=== PATIENT | female | born 1960 | race Caucasian/White ===

== ENCOUNTER 2017-01-13 16:42 | Observation (INO) | payer OTHER ==
[2017-01-13] MEDS ORDERED: Aspirin Low Dose CHEW TAB* 81 MG PO ONE (17:13)
[2017-01-13 17:55] LABS: ALT 24 U/L (7-52); Albumin 4.5 g/dL (3.2-5.2); Alkaline Phosphatase 60 U/L (34-104); BUN/Creatinine Ratio 29.5 (8-20); Blood Urea Nitrogen 18 mg/dL (6-24); CO2 Carbon Dioxide 23 mmol/L (22-32); Calcium 9.1 mg/dL (8.6-10.3); Chloride 105 mmol/L (101-111); Creatine Kinase 177 U/L (10-223); EGFR Non-African American 101.1 (>60); Globulin 2.8 g/dL (2-4); Glucose 99 mg/dL (70-100); Sodium 135 mmol/L (133-145); Total Protein 7.3 g/dL (6.4-8.9)
[2017-01-13 17:57] LABS: Troponin I 0.01 ng/mL (<0.04)
[2017-01-13 18:06] LABS: TSH (Thyroid Stimulating Horm) 0.91 mcIU/mL (0.34-5.60)
--- NOTE | 2017-01-13 18:26 | RAD ---
INDICATION: Chest pain COMPARISON: None. TECHNIQUE: Single AP portable view of the chest was obtained. FINDINGS: Image quality is compromised due to the relative inferiority of a portable chest x-ray. The heart and mediastinum exhibit normal size and contour. The lungs are grossly clear. There is no evidence of a large pleural effusion. Visualized bones are normal for the patient's age. IMPRESSION: No radiographic evidence for acute cardiopulmonary abnormality on this portable chest x-ray.
[2017-01-13 18:33] LABS: Hematocrit 40 % (35-47); Hemoglobin 13.6 g/dl (12.0-16.0); Mean Corpuscular HGB Conc 34 g/dl (31-36); Mean Corpuscular Hemoglobin 32 pg (27-31); Mean Corpuscular Volume 92 fL (80-97); Red Blood Count 4.32 10^6/ul (4.0-5.4); Red Cell Distribution Width 13 % (10.5-15); White Blood Count 7.8 10^3/ul (3.5-10.8)
[2017-01-13 18:38] LABS: Add Diff/Slide Review? Slide Review Added; Comments Flag Yes
[2017-01-13 19:02] LABS: Mean Platelet Volume 9 um3 (7.4-10.4)
[2017-01-13 19:07] LABS: Magnesium 2.4 mg/dL (1.9-2.7)
[2017-01-13 20:26] LABS: Urine Bacteria Absent (Absent); Urine Bilirubin Negative (Negative); Urine Glucose Negative (Negative); Urine Nitrite Negative (Negative)
[2017-01-13] MEDS ORDERED: Nitroglycerin TAB 0.4 MG* 0.4 MG TAB SL ONE (22:23)
[2017-01-13] MEDS ORDERED: Acetaminophen TAB* 325 MG PO PRN (22:39)
[2017-01-13] MEDS ORDERED: Melatonin (NF) 3 MG TAB PO PRN (22:39)
[2017-01-13] MEDS ORDERED: Ondansetron INJ* 2 MG/ML VIAL IV PRN (22:39)
[2017-01-13] MEDS ORDERED: Morphine INJ* 2 MG/ML 1 ML SYRINGE IV PRN (22:39)
[2017-01-13] MEDS ORDERED: NS 0.9% 1000 ML* 1,000 ML IV SCH (22:45)
--- NOTE | 2017-01-13 22:52 | HP ---
H&P (Free Text) History and Physical: PCP: Linda Oconnell MD Date/Time of Evaluation: 01/13/2017 1825 CC: chest pain HPI: Mrs Stuart is a 57YO obese female HX HTN, brother w/ PA/3vCABG in his 50s presents with onset of non-radiating, non-exertional sharp to pressure-like substernal chest pain around 1300 as she got off a mattress while mattress shopping. There has been no SOB, N/V, sweating, palpitations, or light- headedness. She went out to dinner with her while the pain gradually increased. While driving home her pain increased to 10/10, still without associated symptoms prompting her to have her bring her to [facility] ED. Aspirin and nitro have had no effect on the pain, but it has spontaneously decreased to a level of 2/10. Troponins are negative x2. ECG is sinus bradycardia rate 58, mild ST depression V4-5. pCXR is benign. PMedHx Allergies No Known Allergies Allergy (Verified 04/29/13 09:54) HTN OAB GERD Ambulatory Orders Ibuprofen TAB* [Advil TAB*] 400 mg PO Q6HR PRN 04/20/13 Lisinopril TAB* [Prinivil TAB*] 10 mg PO DAILY 01/13/17 Oxybutynin XL TAB* [Ditropan XL TAB*] 10 mg PO DAILY 01/13/17 Pantoprazole TAB (NF) [Protonix TAB (NF)] 40 mg PO DAILY 01/13/17 PSurgHx R ulnar shortening surgery appendectomy SocHx: former smoker w/ ~10PYHX, former drinker sober x15 years, no recreational drugs; lives with her ; works in retail; full code status FamHx: Brother 1: PA/3vCABG in his 40s, passed of PA at 53. Brother 2: DM2, super morbid obesity, CHF, COPD, passed of mixed PA/COPD at age 53 also. ROS: as above, otherwise reviewed and all were negative Constitutional: NAD, normally developed, obese white female vitals: Vital Signs Temp 37.4 C 01/13/17 16:55 Pulse 58 01/13/17 22:34 Resp 16 01/13/17 22:34 BP 136/82 01/13/17 22:34 Pulse Ox 96 01/13/17 22:34 Intake & Output 01/12/17 01/13/17 01/13/17 23:59 11:59 23:59 Weight 97.522 kg HEENM: atraumatic; sclera/conjunctiva: non-tender/clear; hearing: clinically intact; oropharynx: clear, mucosa moist Neck: soft tissue: non-tender; thyroid: normal Pulmonary: clear to auscultation bilaterally, good aeration, no accessory muscle use CV: RR/RR, normal S1S2, no carotid bruit, no jugular venous distention, 2+ B DP/ PT, no edema Abdominal: soft, non-distended, non-tender, no rebound/guarding/rigidity, normoactive bowel sounds, no hepatosplenomegaly or masses, no costovertebral angle tenderness Musculoskeletal: general: grossly intact; gait: stable Integumental: normal appearance and texture of exposed skin Psychiatric orientation: AA&O to PPS affect: calm mood: cooperative eye contact: good content: reliable responses: timely insight: good Testing: Lab Results 01/13/17 01/13/17 01/13/17 Range/Units 17:05 18:26 18:26 WBC (3.5-10.8) 10^3/ul RBC (4.0-5.4) 10^6/ul Hgb (12.0-16.0) g/dl Hct (35-47) % MCV (80-97) fL MCH (27-31) pg MCHC (31-36) g/dl RDW (10.5-15) % Plt Count (150-450) 10^3/ul MPV (7.4-10.4) um3 Neut % (Auto) (38-83) % Lymph % (Auto) (25-47) % [place] % (Auto) (1-9) % Eos % (Auto) (0-6) % Baso % (Auto) (0-2) % Absolute Neuts (auto) (1.5-7.7) 10^3/ul Absolute Lymphs (auto) (1.0-4.8) 10^3/ul Absolute Monos (auto) (0-0.8) 10^3/ul Absolute Eos (auto) (0-0.6) 10^3/ul Absolute Basos (auto) (0-0.2) 10^3/ul Absolute Nucleated RBC 10^3/ul Nucleated RBC % Sodium 135 (133-145) mmol/L Potassium TNP 3.9 Chloride 105 (101-111) mmol/L Carbon Dioxide 23 (22-32) mmol/L Anion Gap TNP BUN 18 (6-24) mg/dL Creatinine 0.61 (0.51-0.95) mg/dL Est GFR ( Amer) 130.0 (>60) Est GFR (Non-Af Amer) 101.1 (>60) BUN/Creatinine Ratio 29.5 H (8-20) Glucose 99 (70-100) mg/dL Lactic Acid (0.5-2.0) mmol/L Calcium 9.1 (8.6-10.3) mg/dL Magnesium TNP 2.4 Total Bilirubin 0.50 (0.2-1.0) mg/dL AST TNP 23 ALT 24 (7-52) U/L Alkaline Phosphatase 60 (34-104) U/L Total Creatine Kinase 177 (10-223) U/L CK-MB (CK-2) 5.6 (0.6-6.3) ng/mL Myoglobin 31.8 (14.3-65.8) ng/mL Troponin I 0.01 (<0.04) ng/mL B-Natriuretic Peptide 24 ( - 100) pg/mL Total Protein 7.3 (6.4-8.9) g/dL Albumin 4.5 (3.2-5.2) g/dL Globulin 2.8 (2-4) g/dL Albumin/Globulin Ratio 1.6 (1-3) TSH 0.91 (0.34-5.60) mcIU/mL Urine Color Urine Appearance Urine pH (5-9) Ur Specific [place] (1.010-1.030) Urine Protein (Negative) Urine Ketones (Negative) Urine Blood (Negative) Urine Nitrate (Negative) Urine Bilirubin (Negative) Urine Urobilinogen (Negative) Ur Leukocyte Esterase (Negative) Urine WBC (Auto) (Absent) Urine RBC (Auto) (Absent) Ur Squamous Epith Cells (Absent) Urine Bacteria (Absent) Urine Glucose (Negative) 01/13/17 01/13/17 01/13/17 Range/Units 18:26 20:05 20:05 WBC 7.8 (3.5-10.8) 10^3/ul RBC 4.32 (4.0-5.4) 10^6/ul Hgb 13.6 (12.0-16.0) g/dl Hct 40 (35-47) % MCV 92 (80-97) fL MCH 32 H (27-31) pg MCHC 34 (31-36) g/dl RDW 13 (10.5-15) % Plt Count 193 (150-450) 10^3/ul MPV 9 (7.4-10.4) um3 Neut % (Auto) 51.3 (38-83) % Lymph % (Auto) 38.0 (25-47) % [place] % (Auto) 6.7 (1-9) % Eos % (Auto) 2.7 (0-6) % Baso % (Auto) 1.3 (0-2) % Absolute Neuts (auto) 4.0 (1.5-7.7) 10^3/ul Absolute Lymphs (auto) 3.0 (1.0-4.8) 10^3/ul Absolute Monos (auto) 0.5 (0-0.8) 10^3/ul Absolute Eos (auto) 0.2 (0-0.6) 10^3/ul Absolute Basos (auto) 0.1 (0-0.2) 10^3/ul Absolute Nucleated RBC 0.01 10^3/ul Nucleated RBC % 0.1 Sodium (133-145) mmol/L Potassium Chloride (101-111) mmol/L Carbon Dioxide (22-32) mmol/L Anion Gap BUN (6-24) mg/dL Creatinine (0.51-0.95) mg/dL Est GFR ( Amer) (>60) Est GFR (Non-Af Amer) (>60) BUN/Creatinine Ratio (8-20) Glucose (70-100) mg/dL Lactic Acid 0.7 (0.5-2.0) mmol/L Calcium (8.6-10.3) mg/dL Magnesium Total Bilirubin (0.2-1.0) mg/dL AST ALT (7-52) U/L Alkaline Phosphatase (34-104) U/L Total Creatine Kinase (10-223) U/L CK-MB (CK-2) (0.6-6.3) ng/mL Myoglobin (14.3-65.8) ng/mL Troponin I (<0.04) ng/mL B-Natriuretic Peptide ( - 100) pg/mL Total Protein (6.4-8.9) g/dL Albumin (3.2-5.2) g/dL Globulin (2-4) g/dL Albumin/Globulin Ratio (1-3) TSH (0.34-5.60) mcIU/mL Urine Color Yellow Urine Appearance Clear Urine pH 6.0 (5-9) Ur Specific [place] 1.017 (1.010-1.030) Urine Protein Negative (Negative) Urine Ketones Negative (Negative) Urine Blood Negative (Negative) Urine Nitrate Negative (Negative) Urine Bilirubin Negative (Negative) Urine Urobilinogen Negative (Negative) Ur Leukocyte Esterase Trace H (Negative) Urine WBC (Auto) Trace(0-5/hpf) (Absent) Urine RBC (Auto) Absent (Absent) Ur Squamous Epith Cells Present H (Absent) Urine Bacteria Absent (Absent) Urine Glucose Negative (Negative) 01/13/17 Range/Units 20:05 WBC (3.5-10.8) 10^3/ul RBC (4.0-5.4) 10^6/ul Hgb (12.0-16.0) g/dl Hct (35-47) % MCV (80-97) fL MCH (27-31) pg MCHC (31-36) g/dl RDW (10.5-15) % Plt Count (150-450) 10^3/ul MPV (7.4-10.4) um3 Neut % (Auto) (38-83) % Lymph % (Auto) (25-47) % [place] % (Auto) (1-9) % Eos % (Auto) (0-6) % Baso % (Auto) (0-2) % Absolute Neuts (auto) (1.5-7.7) 10^3/ul Absolute Lymphs (auto) (1.0-4.8) 10^3/ul Absolute Monos (auto) (0-0.8) 10^3/ul Absolute Eos (auto) (0-0.6) 10^3/ul Absolute Basos (auto) (0-0.2) 10^3/ul Absolute Nucleated RBC 10^3/ul Nucleated RBC % Sodium (133-145) mmol/L Potassium Chloride (101-111) mmol/L Carbon Dioxide (22-32) mmol/L Anion Gap BUN (6-24) mg/dL Creatinine (0.51-0.95) mg/dL Est GFR ( Amer) (>60) Est GFR (Non-Af Amer) (>60) BUN/Creatinine Ratio (8-20) Glucose (70-100) mg/dL Lactic Acid (0.5-2.0) mmol/L Calcium (8.6-10.3) mg/dL Magnesium Total Bilirubin (0.2-1.0) mg/dL AST ALT (7-52) U/L Alkaline Phosphatase (34-104) U/L Total Creatine Kinase (10-223) U/L CK-MB (CK-2) (0.6-6.3) ng/mL Myoglobin (14.3-65.8) ng/mL Troponin I 0.00 (<0.04) ng/mL B-Natriuretic Peptide ( - 100) pg/mL Total Protein (6.4-8.9) g/dL Albumin (3.2-5.2) g/dL Globulin (2-4) g/dL Albumin/Globulin Ratio (1-3) TSH (0.34-5.60) mcIU/mL Urine Color Urine Appearance Urine pH (5-9) Ur Specific [place] (1.010-1.030) Urine Protein (Negative) Urine Ketones (Negative) Urine Blood (Negative) Urine Nitrate (Negative) Urine Bilirubin (Negative) Urine Urobilinogen (Negative) Ur Leukocyte Esterase (Negative) Urine WBC (Auto) (Absent) Urine RBC (Auto) (Absent) Ur Squamous Epith Cells (Absent) Urine Bacteria (Absent) Urine Glucose (Negative) ECG, personally reviewed: sinus bradycardia rate 58, mild ST depression V4-5 CXR, personally reviewed: IMPRESSION: No radiographic evidence for acute cardiopulmonary abnormality on this portable chest x-ray. Impression: 57F HX obesity, HTN, FamHX+ early onset CAD presenting w/ chest pain for r/o ACS DIAGNOSIS & PLAN Primary chest pain r/o ACS : aspirin : no beta bishnu 2nd bradycardia : supplemental oxygen : trend troponin : telemetry : stress test in AM : supportive care Secondary HTN : continue lisinopril OAB : continue oxybutynin GERD : omeprazole Admission Rational: CDU observation for r/o ACS DVTp: RHODA Code Status: full HCP:
[2017-01-14] MEDS ORDERED: CMCS - Melatonin (NF) 3 MG TAB PO PRN (00:18)
[2017-01-14] MEDS ORDERED: Omeprazole CAP* 20 MG PO SCH (06:00)
--- NOTE | 2017-01-14 07:46 | ED ---
Ricki Boone Adam, scribed for Maximino Linda MD on 01/13/17 at 1717 . HPI Chest Pain - HPI Summary HPI Summary: Pt is a 57 year old female presenting with chest pain that set on suddenly at approximately 13:00. The pt was at a furniture store lying down on a mattress and when she sat up she immediately felt pain in a specific area near her sternum. She assumed that she had pulled a muscle so she went on with her day. However, over time she states that the pain "tightened up" and became an 8 or 9 out of 10 in severity. Deep breaths aggravate the pain. Pt has never had this pain before. As she sits in the ED now, the pain is resolved. She denies nausea , vomiting, diaphoresis, pre-syncope, SOB, diarrhea, and constipation. PMHx of HTN. No tobacco hx; occasional EtOH use. FMHx of cardiac disease in her two brothers. - History of Current Complaint Chief Complaint: EDChestPainROMI Time Seen by Provider: 01/13/17 17:13 Hx Obtained From: Patient Onset/Duration: Started Hours Ago, Atraumatic, Resolved Timing: Constant Initial Severity: Moderate Current Severity: None Pain Intensity: 2 Pain Scale Used: 0-10 Numeric Chest Pain Location: Discrete at: - near the pt's sternum Character: Tightness, Other: - [place] like "pulled muscle" Aggravating Factor(s): Deep Breaths Alleviating Factor(s): Spontaneous Resolution Associated Signs and Symptoms: Negative: Shortness of Breath, Syncope, Diaphoresis, Nausea, Vomiting - Allergy/Home Medications Allergies/Adverse Reactions: Allergies Allergy/AdvReac Type Severity Reaction Status Date / Time No Known Allergies Allergy Verified 04/29/13 09:54 Home Medications: Home Medications Lisinopril TAB* [Prinivil TAB*] 10 mg PO DAILY 01/13/17 [History Confirmed 01/13] Oxybutynin XL TAB* [Ditropan XL TAB*] 10 mg PO DAILY 01/13/17 [History Confirmed 01/13/17] Pantoprazole TAB (NF) [Protonix TAB (NF)] 40 mg PO DAILY 01/13/17 [History Confirmed 01/13/17] PMH/Surg Hx/FS Hx/Imm Hx Cardiovascular History: Reports: Hx Hypertension Denies: Hx Pacemaker/ICD Musculoskeletal History: Reports: Hx Arthritis - HANDS Sensory History: Reports: Hx Contacts or Glasses - GLASSES Denies: Hx Hearing Aid Opthamlomology History: Reports: Hx Contacts or Glasses - GLASSES - Surgical History Surgery Procedure, Year, and Place: HERNIA REPAIR[facility]. APPENDECTOMY Hx Anesthesia Reactions: No Infectious Disease History: No Infectious Disease History: Denies: Traveled Outside the [place] in Last 30 Days - Family History Known Family History: Positive: Cardiac Disease - (brothers), Respiratory Disease - COPD (brother), Other - Cancer - Social History Occupation: Employed Full-time Lives: With Family - Alcohol Use: Occasionally Hx Substance Use: No Substance Use Type: Reports: None Hx Tobacco Use: No Smoking Status (MU): Never Smoked Tobacco Review of Systems Negative: Skin Diaphoresis Positive: Chest Pain Negative: Shortness Of Breath Negative: Vomiting, Diarrhea, Nausea Negative: Syncope All Other Systems Reviewed And Are Negative: Yes Physical Exam - Summary Physical Exam Summary: VITAL SIGNS: Reviewed. GENERAL: Patient is a well developed and nourished female who is lying comfortable in the stretcher. Patient is not in any acute respiratory distress. HEAD AND FACE: No signs of trauma. No ecchymosis, hematomas or skull depressions. No sinus tenderness. EYES: PERRLA, EOMI x 2, No injected conjunctiva, no nystagmus. EARS: Hearing grossly intact. Ear canals and tympanic membranes are within normal limits. MOUTH: Oropharynx within normal limits. NECK: Supple, trachea is midline, no adenopathy, no JVD, no carotid bruit, no c- spine tenderness, neck with full ROM. CHEST: Symmetric, Positive tenderness at palpation in the retrosternal area. LUNGS: Clear to auscultation bilaterally. No wheezing or crackles. CVS: Regular rate and rhythm, S1 and S2 present, no murmurs or gallops appreciated. ABDOMEN: Soft, non-tender. No signs of distention. No rebound no guarding, and no masses palpated. Bowel sounds are normal. EXTREMITIES: FROM in all major joints, no edema, no cyanosis or clubbing. NEURO: Alert and oriented x 3. No acute neurological deficits. Speech is normal and follows commands. SKIN: Dry and warm Triage Information Reviewed: Yes Vital Signs On Initial Exam: Initial Vitals Temp Pulse Resp BP Pulse Ox 99.4 F 67 16 159/73 97 01/13/17 16:55 01/13/17 16:55 01/13/17 16:55 01/13/17 16:55 01/13/17 16:55 Vital Signs Reviewed: Yes - Vish Coma Scale Coma Scale Total: 15 Diagnostics - Vital Signs Vital Signs Temp Pulse Resp BP Pulse Ox 01/13/17 16:55 99.4 F 67 16 159/73 97 - Laboratory Result Diagrams: 01/13/17 18:26 01/13/17 18:26 Lab Statement: Any lab studies that have been ordered have been reviewed, and results considered in the medical decision making process. - Radiology CXR Xray Interpretation: No Acute Changes Radiology Interpretation Completed By: Radiologist - EKG 16:50 Cardiac Rate: NL - 71 BPM EKG Rhythm: Sinus Rhythm EKG Interpretation: No ST elevations. ST depressions in V4, V5, and V6. - Additional Comments Diagnostic Additional Comments: Troponin I - 0.01 (@17:05) Chest Pain Course/Dx - Course Assessment/Plan: Pt is a 57 year old female presenting with chest pain that set on suddenly at approximately 13:00. The pt was at a furniture store lying down on a mattress and when she sat up she immediately felt pain in a specific area near her sternum. She assumed that she had pulled a muscle so she went on with her day. However, over time she states that the pain "tightened up" and became an 8 or 9 out of 10 in severity. Deep breaths aggravate the pain. Pt has never had this pain before. As she sits in the ED now, the pain is resolved. She denies nausea, vomiting, diaphoresis, pre-syncope, SOB, diarrhea, and constipation. PMHx of HTN. No tobacco hx; occasional EtOH use. FMHx of cardiac disease in her two brothers. BW is WNL. Troponin is 0.01. CXR shows no acute pathology. EKG shows normal sinus rhythm with no ST elevations but ST depressions in V4, V5, and V6. Unable to compare with old EKG's because none are available. Blood work WNL however many of the blood test are hemolyzed. troponin #1 negative. We are awaiting for the blood redraw results. EKG shows a NSR w/o STEMI but has ST depressions in V4-V6. CXR shows no acute pathology. Patient was given ASA and she is Asymptomatic. She reports chest pain resolved. At this time I will signing out patient to Dr Workman to f/u the repeat blood work and I recommend for the patient to be admitted for the with an abnormal EKG to r/o ACS. At this time patient is hemodynamically stable and she is alert and oriented x 3. She is pain free. - Chest Pain Differential Diagnosis/HQI/PQRI: ACS, Angina, CHF, Chest Wall, GI Disease, Lower Respiratory Infection - Diagnoses Provider Diagnoses: Chest pain Discharge - Discharge Plan Condition: Stable Disposition: ADMITTED TO [facility] Discharge Disposition Comment: Sign out to Dr. Workman, pending repeat troponin and repeat EKG The documentation as recorded by the Ricki jimenes Adam accurately reflects the service I personally performed and the decisions made by , Maximino Linda MD.
[2017-01-14 08:47] VITALS: BP 130/67
[2017-01-14] MEDS ORDERED: Oxybutynin XL TAB* 5 MG PO SCH (09:00)
[2017-01-14] MEDS ORDERED: Aspirin TAB* 325 MG PO SCH (09:00)
--- NOTE | 2017-01-14 13:45 | PN ---
Subjective Date of Service: 01/14/17 Interval History: Patient seen and examined at bedside. Denies fever, chills, shortness of breath , chest discomfort, N/V/D. Pt states that she was chest pain free during her stress test and when ambulating to the bathroom. Pt states that she has not taken her Lisinopril in 2 days. Tele: Sinus Rhythm, rate 60's. Family History: Unchanged from Admission Social History: Unchanged from Admission Past Medical History: Unchanged from Admission Objective Active Medications: Acetaminophen (Tylenol Tab*) 650 mg PO Q6H PRN Reason: FEVER/PAIN Aspirin (Aspirin Tab*) 325 mg PO DAILY [facility] Melatonin (Melatonin (Nf)) 3 mg PO BEDTIME PRN; Protocol Reason: Sleep Morphine Sulfate (Morphine Inj (Syringe)*) 2 mg IV Q4H PRN Reason: PAIN - MILD Omeprazole (Prilosec Cap*) 20 mg PO DAILY@0600 [facility] Ondansetron HCl (Zofran Inj*) 4 mg IV Q6H PRN Reason: NAUSEA Oxybutynin Chloride (Ditropan Xl Tab*) 10 mg PO DAILY [facility] Vital Signs 01/13/17 01/13/17 01/14/17 22:34 23:33 03:29 Temperature 97.4 F 97.5 F Pulse Rate 58 56 57 Respiratory 16 16 16 Rate Blood Pressure 136/82 156/73 121/58 (mmHg) O2 Sat by Pulse 96 100 98 Oximetry 01/14/17 01/14/17 07:45 08:00 Temperature 97.3 F Pulse Rate 58 Respiratory 16 16 Rate Blood Pressure 130/67 (mmHg) O2 Sat by Pulse 98 Oximetry Oxygen Devices in Use Now: None Appearance: NAD, sitting up in bed Eyes: No Scleral Icterus, PERRLA Ears/Nose/Mouth/Throat: NL Teeth, Lips, Gums, Mucous Membranes Moist Neck: NL Appearance and Movements; NL JVP, Trachea Midline Respiratory: Symmetrical Chest Expansion and Respiratory Effort, Clear to Auscultation Cardiovascular: NL Sounds; No Murmurs; No JVD, RRR Abdominal: NL Sounds; No Tenderness; No Distention Extremities: No Edema Skin: No Rash or Ulcers Neurological: Alert and Oriented x 3, NL Muscle Strength and Tone Lines/Tubes/Other Access: Clean, Dry and Intact Peripheral IV - site benign Nutrition: Taking PO's Result Diagrams: 01/13/17 18:26 01/13/17 18:26 Assess/Plan/Problems-Billing Assessment: Ms. Stuart is a 57 yo female with PMH obesity, and HTN who presented to the emergency room for chest pain. - Patient Problems (1) Chest pain Code(s): R07.9 - CHEST PAIN, UNSPECIFIED SNOMED Code(s): 18762244 Comment: - No further chest pain - Troponin 0.01, 0.00 and 0.00 - EKG this AM with minimal ST depression in leads V4-5, consistent with previous EKGs - Exercise Stress Test - Borderline Exercise Stress Test with HTN response no early ischemia. Subtle changes noted in late recovery. This could represent CAD , but could also be a result of HTN. - Will start low dose beta-bishnu and baby ASA - Pt should have a Nuclear Stress Test Outpatient (2) HTN (hypertension) Code(s): I10 - ESSENTIAL (PRIMARY) HYPERTENSION SNOMED Code(s): 27404094 Comment: - Mostly controlled - Continue Lisinopril (3) Overactive bladder Code(s): N32.81 - OVERACTIVE BLADDER SNOMED Code(s): 817767642 Comment: - Continue Oxybutynin (4) GERD (gastroesophageal reflux disease) Code(s): K21.9 - GASTRO-ESOPHAGEAL REFLUX DISEASE WITHOUT ESOPHAGITIS SNOMED Code(s): 897586828 Comment: - Continue Omeprazole (5) DVT prophylaxis Code(s): ONL5365 - SNOMED Code(s): 502554087 Comment: - Ambulation (6) Full code status Code(s): Z78.9 - OTHER SPECIFIED HEALTH STATUS SNOMED Code(s): 959815442 Status and Disposition: OBV. Plan for discharge to home later today, if she remains chest pain free while ambulating in the halls.
--- NOTE | 2017-01-14 21:18 | ED ---
I, Gilberto Garcia, scribed for Tadeo Workman MD on 01/13/17 at 2032 . Progress - Progress Note Progress Note: Patient is signed out from Dr. Linda pending repeat troponin and EKG. Labs and EKG reviewed. Patient admitted to Dr. Pickens's services. - Results/Orders Results/Orders: EKG at 2019: sinus bradycardia 50 bpm, no STEMI Re-Evaluation - Re-Evaluation First Eval Re-Evaluation Time: 22:19 Comment: 2/10 chest pain which is not reproducible with movement or palpation. Family history of a brother with PR and CABG. Personal hx obesity. Course/Dx - Diagnoses Provider Diagnoses: Chest pain - Provider Notifications Discussed Care Of Patient With: Dr. Pickens (hospitalist) @ 2230: accepts admission. Discharge - Discharge Plan Condition: Stable Disposition: ADMITTED TO [facility] The documentation as recorded by the yaimaibJose leyva Billy accurately reflects the service I personally performed and the decisions made by , Tadeo Workman MD.
--- NOTE | 2017-01-15 03:33 | DS ---
DISCHARGE SUMMARY: DATE OF ADMISSION: 01/13/17 DATE OF DISCHARGE: 01/14/17 ATTENDING PHYSICIAN: Dr. Jean Castillo *(dictated by Blanca Gill NP) PRIMARY CARE PROVIDER: Dr. Colleen Montenegro. PRIMARY DIAGNOSES: 1. Chest pain. 2. Hypertension. SECONDARY DIAGNOSES: 1. Gastroesophageal reflux disease. 2. Overactive bladder. STUDIES WHILE IN THE HOSPITAL: 1. Chest x-ray on 01/13/17. Radiologist's impression: No radiographic evidence for acute cardiopulmonary abnormality on this portable chest x-ray. 2. Exercise nonnuclear stress test on 01/14/17. Cat Driver's observation, resting EKG - normal sinus rhythm, 62. Exercise by standard [facility] protocol to 7.15 achieving 10.1 METs, heart rate to 98% age predicted with normal 1-minute recovery heart rate. Mild baseline hypertension with hypertensive response to exercise to 212/96. No reproduction of the patient's symptoms with exercise. No definitive EKG changes of ischemia with exercise; however, in late recovery, there was subtle ST segment downsloping in II, III, aVF, V5, V6, somewhat suggestive of ischemia. With exercise, there were rare PVCs seen with PACs and short runs of SVT (3 beats). Conclusion: Borderline exercise stress test with hypertensive response to exercise with no early onset ischemia by EKG and on symptoms. Subtle suggestive, but not definitive changes of ischemia noted in recovery (no T during exercise). Suggests clinical correlation. DISCHARGE MEDICATIONS: New home medications: 1. Aspirin 81 mg oral daily. 2. Metoprolol tartrate 12.5 mg oral twice daily. Continued home medications: 1. Ibuprofen 400 mg oral every 6 hours needed for pain. 2. Protonix 40 mg oral daily. 3. Oxybutynin XL 10 mg oral daily. 4. Lisinopril 10 mg oral daily. HISTORY OF PRESENT ILLNESS/HOSPITAL COURSE: Ms. Stuart is a 57-year-old female with a past medical history significant for obesity, hypertension, and family history of a brother with an HI and 3-vessel CABG in his 50s, who presented to the emergency room with nonradiating nonexertional sharp, pressure- like substernal chest pain after getting up from a lying position while was shopping. She denied associated shortness of breath, nausea, vomiting, sweating , palpitations, or lightheadedness. The patient then went out to dinner and proceeded to have gradual increase in her pain. While driving home, the patient developed 10/10 pain without associated symptoms prompting her presentation to the emergency room for further evaluation of her symptoms. While in the emergency room, the patient was given aspirin and nitroglycerin without any affect on the pain, but the patient's pain spontaneously decreased to 2/10. The patient had troponins x2 that were negative. She had an EKG showing a sinus bradycardia with a rate of 58, mild ST depression in lead V4 to V5 and a chest x-ray with no acute findings. Based off the patient's presentation and risk factors, the hospitalists were asked to evaluate the patient for admission. While in the hospital, the patient was monitored on telemetry with a heart rate in sinus rhythm and rate in the 60s. The patient underwent a exercise stress test and had a hypertensive response to exercise with no early-onset ischemia by EKG and no symptoms. She did have subtle changes during the resting period that could be suggestive of ischemia. It was felt that this could represent acute coronary syndrome, but the EKG changes seen on the patient's stress test could also be related to the hypertension during the stress test. During the patient's time in the hospital, she has remained chest pain free. The patient' s troponin has remained flat. The patient had a repeat EKG that is similar to previous EKG from yesterday in the emergency room. DISCHARGE PLAN: Ms. Stuart will be discharged to home. Activity as tolerated. She should be on a heart healthy diet. As far as the patient's hypertension, she should be continued on her home lisinopril. As far as the patient's chest pain, this could represent acute coronary syndrome, the EKG changes seen on the patient's stress test could also be related to a hypertensive episode. The patient has been started on low-dose beta-bishnu of metoprolol tartrate 12.5 mg oral twice daily. The patient has also been started on baby aspirin daily. Once her blood pressures have been controlled outpatient , should undergo a nuclear cardiac stress test. The patient has been asked to return to the emergency room for any concerning symptoms with chest pain or associated numbness, tingling in her arms, jaw or face. The patient and state understanding. This is a summarized report of a complex medical history and hospital stay. For further details, please see the entire medical record. TIME SPENT: Time for this discharge was 50 minutes, 25 minutes were spent face- to- face with the patient and discussing discharge plans and instructions. CONDITION ON DISCHARGE: Stable. Reviewed by SUZIE MIRELES 01/15/17 [id number] CC: Dr. Montenegro* [id number]/CPS #: [id number] [facility]
== END 2017-01-14 14:49 | disposition home or self-care (01) ==
LOC: ED 16:42 → MEDTELE 22:33
PROVIDERS: ADMIT Hospitalist; ATTEND Internal Medicine
DX: R07.9 Chest pain, unspecified (principal); I10 Essential (primary) hypertension; K21.9 Gastro-esophageal reflux disease without esophagitis; N32.81 Overactive bladder; Z79.82 Long term (current) use of aspirin; Z79.899 Other long term (current) drug therapy; Z87.891 Personal history of nicotine dependence; R00.1 Bradycardia, unspecified
CPT/HCPCS: 36415; 71010; 80053; 81003; 81015; 82550; 82553; 83605; 83735; 83874; 83880; 84443; 84484; 85025; 87086; 93005; 93017; 96360; 96361; 99283; A9270-GY; G0378